=== PATIENT | male | born 1995 | race Caucasian/White ===

== ENCOUNTER 2017-07-11 10:30 | Emergency (ER) | payer OTHER ==
[~2017-07-11] VITALS: Ht 172.7 cm; Wt 65.8 kg
[2017-07-11 11:06] LABS: HEMATOCRIT 40.4 % (42.0-52.0); HEMOGLOBIN 14.5 gm/dL (14.0-18.0); MCH 30.6 pg (26.0-34.0); MCHC 35.9 g/dL (28.0-37.0); MCV 85.4 fL (80.0-100.0); MPV 8.6 fl. (7.2-11.1); RBC 4.73 mil/uL (4.50-6.00); RDW-CV 12.8 % (10.5-14.5); WBC 6.1 thou/uL (4.0-11.0)
[2017-07-11 11:22] LABS: CALCIUM 9.2 mg/dL (8.5-10.1); CREATININE 1.2 mg/dL (0.6-1.3); POTASSIUM 3.7 mmol/L (3.5-5.1)
[2017-07-11 11:23] LABS: URINE BILIRUBIN NEGATIVE (Negative); URINE BLOOD NEGATIVE (Negative); URINE CLARITY CLEAR; URINE COLOR YELLOW; URINE GLUCOSE-RANDOM NEGATIVE (Negative); URINE KETONES NEGATIVE (Negative); URINE LEUKOCYTES-REFLEX NEGATIVE (Negative); URINE NITRITE-REFLEX NEGATIVE (Negative); URINE PROTEIN NEGATIVE (Negative); URINE UROBILINOGEN 0.2 E.U./dl (0.2-1.0)
[2017-07-11 11:26] LABS: TOTAL BILIRUBIN 0.2 mg/dL (<0.1-1.0); TOTAL PROTEIN 7.7 g/dL (6.4-8.2)
[2017-07-11 11:46] VITALS: BP 109/68
--- NOTE | 2017-07-12 13:51 | EKG ---
[place] [address] ELECTROCARDIOGRAM REPORT Name: JUVENTINO ANDRADE Room: [facility]#: [id number] Admission: 07/11/17 Attend Phys: Discharge: 07/11/17 Date of : [birth year] Report #: [id number] THIS REPORT FOR: //name// [facility] ED Test Date: 2017-07-11 Test Time: 10:51:58 Pat Name: JUVENTINO ANDRADE Department: Room: Gender: M [employer]: : 1995 Requested By: Wesley Vivas Order Number: [id number] MD: Wilder Angel Measurements Intervals [place] Rate: 81 P: 64 MA: 134 QRS: 98 QRSD: 90 T: 42 QT: 356 QTc: 414 Interpretive Statements Sinus rhythm Borderline right axis deviation No previous ECG available for comparison Electronically Signed On 07-12-2017 13:51:41 EDITOR by Wilder Angel [email or web address] <ELECTRONICALLY SIGNED> By: Wilder Angel MD, [facility] 07/12/17 1351 1051 1051 Wilder Angel MD, FACC /EPI
== END 2017-07-11 11:46 | disposition home or self-care (01) ==
LOC: M.ERS 10:30
PROVIDERS: Physician Assistant
DX: R55 Syncope and collapse (principal); B34.9 Viral infection, unspecified